=== PATIENT | male | born 1960 ===

== ENCOUNTER 2018-08-07 10:27 | Emergency (ER) | payer BC ==
[2018-08-07 10:39] VITALS: O2SAT 97
--- NOTE | 2018-08-07 11:20 | C.PDOC ---
History Of Present Illness 58 y/o male presents to ED requesting alcohol detox. Patient states he is a daily drinker, but for the past week, he has been binge drinking alcohol. Patient complains of mild headache and epigastric abdominal pain. Otherwise he denies chest pain, SOB, vomiting, diarrhea, dizziness, or visual changes. Time Seen by Provider: 08/07/18 10:51 Chief Complaint (Nursing): Substance Abuse History Per: Patient History/Exam Limitations: no limitations Onset/Duration Of Symptoms: Days Current Symptoms Are (Timing): Still Present Past Medical History Reviewed: Historical Data, Nursing Documentation, Vital Signs Vital Signs: Last Vital Signs Temp 98.5 F 08/07/18 10:36 Pulse 116 H 08/07/18 10:36 Resp 20 08/07/18 10:36 BP 170/100 H 08/07/18 10:36 Pulse Ox 97 08/07/18 10:36 - Medical History PMH: HTN Family History: States: No Known Family Hx - Social History Hx Alcohol Use: Yes Hx Substance Use: No - Immunization History Hx Tetanus Toxoid Vaccination: No Hx Influenza Vaccination: No Hx Pneumococcal Vaccination: No Review Of Systems Except As Marked, All Systems Reviewed And Found Negative. Eyes: Negative for: Vision Change Cardiovascular: Negative for: Chest Pain Respiratory: Negative for: Shortness of Breath Gastrointestinal: Positive for: Abdominal Pain (epigastric). Negative for: Vomiting, Diarrhea Neurological: Positive for: Headache (mild). Negative for: Dizziness Physical Exam - Physical Exam Appears: Non-toxic, Other (mildly uncomfortable) Skin: Warm, Dry Head: Atraumatic, Normacephalic Eye(s): bilateral: Normal Inspection Oral Mucosa: Moist Neck: Supple Chest: Symmetrical Cardiovascular: Rhythm Regular (tachycardic), No Murmur Respiratory: Normal Breath Sounds, No Rales, No Rhonchi, No Wheezing Gastrointestinal/Abdominal: Tenderness (mild epigastric tenderness), Other (Negative for Reyes's and McBurney's) Extremity: Bilateral: Atraumatic, Normal Color And Temperature, Normal ROM Neurological/Psych: Oriented x3, Normal Speech, Normal Cognition, Other (Mild tremors) Gait: Steady ED Course And Treatment - Laboratory Results Result Diagrams: 08/07/18 11:17 08/07/18 11:17 O2 Sat by Pulse Oximetry: 97 (RA) Pulse Ox Interpretation: Normal Progress Note: Bloodwork and urinalysis ordered. Patient was given librium, ibuprofen, and pepcid PO. 12:15- Crisis now states no male detox beds are available due to no discharges. Disposition Counseled Patient/Family Regarding: Diagnosis, Need For Followup, Rx Given - Disposition Referrals: [facility] [Outside] Disposition: HOME/ ROUTINE Disposition Time: 13:00 Condition: STABLE Prescriptions: Famotidine [Pepcid] 20 mg PO BID PRN #15 tab PRN Reason: abdominal Instructions: Alcohol Abuse and Alcoholism (DC) Forms: [employer] (Panamanian) Print Language: URDU - Clinical Impression Clinical Impression: Alcohol dependence - Scribe Statement The provider has reviewed the documentation as recorded by the Fatimah Begum Provider Attestation: All medical record entries made by the José Luisibshiv were at my direction and personally dictated by me. I have reviewed the chart and agree that the record accurately reflects my personal performance of the history, physical exam, medical decision making, and the department course for this patient. I have also personally directed, reviewed, and agree with the discharge instructions and disposition.
[2018-08-07 11:30] LABS: BASO % 0.4 % (0.0-2.0); EOS % 0.4 % (0.0-4.0); HEMOGLOBIN 15.4 g/dL (12.0-18.0); LYMPH % 28.2 % (20.0-40.0); MEAN CELL VOLUME 88.8 fL (80.0-94.0); MEAN CORPUSCULAR HEMOGLOBIN 29.8 pg (27.0-31.0); MEAN CORPUSCULAR HGB CONC 33.5 g/dL (33.0-37.0); MEAN PLATELET VOLUME 8.9 fL (7.2-11.7); MONO # 0.5 K/uL (0.0-0.8); MONO % 7.4 % (0.0-10.0); NEUT # 4.5 K/uL (1.8-7.0); NEUT % 63.6 % (50.0-75.0); NRBC % 0.2 % (0.0-2.0); RBC 5.18 Mil/uL (4.40-5.90); RED CELL DISTRIBUTION WIDTH 13.9 % (11.5-14.5); WHITE BLOOD COUNT 7.1 K/uL (4.8-10.8)
[2018-08-07 11:35] LABS: SQUAMOUS EPITHIAL < 1 /hpf (0-5); URINE BILIRUBIN NEGATIVE (NEGATIVE); URINE BLOOD 1+ (NEGATIVE); URINE CLARITY Hazy (Clear); URINE COLOR Yellow (YELLOW); URINE GLUCOSE (UA) NORMAL (Normal); URINE LEUKOCYTE ESTERASE NEG Leu/uL (Negative); URINE PROTEIN 2+ mg/dL (NEGATIVE); URINE UROBILINOGEN NORMAL mg/dL (0.2-1.0)
[2018-08-07 11:59] LABS: ALB/GLOB RATIO 1.2 (1.0-2.1); ALBUMIN 4.3 g/dL (3.5-5.0); ALT/SGPT 106 U/L (21-72); AST/SGOT 113 U/L (17-59); BLOOD UREA NITROGEN 16 mg/dL (9-20); CALCIUM 8.5 mg/dl (8.6-10.4); GFR NON-AFRICAN AMERICAN > 60; LIPASE 368 U/L (23-300)
[2018-08-07 12:04] LABS: BARBITURATES, UR NEGATIVE (NEGATIVE); BENZODIAZEPINES, UR NEGATIVE (NEGATIVE); OPIATES, UR NEGATIVE (NEGATIVE); PHENCYCLIDINE, UR NEGATIVE (NEGATIVE)
[2018-08-07 13:18] VITALS: BP 151/92; PULSE 113; RESP 13; TEMP 98
== END 2018-08-07 13:31 | disposition home or self-care (01) ==
LOC: C.ER 10:27
DX: F10.20 Alcohol dependence, uncomplicated (principal); I10 Essential (primary) hypertension
CPT/HCPCS: 80053; 81001; 83690; 85025; 99283; G0480

== ENCOUNTER 2018-08-08 09:57 | Inpatient (IN) | payer BC ==
[2018-08-08 11:08] LABS: SQUAMOUS EPITHIAL 1 /hpf (0-5); URINE BACTERIA RARE (<OCC); URINE BILIRUBIN NEGATIVE (NEGATIVE); URINE BLOOD 1+ (NEGATIVE); URINE CLARITY Hazy (Clear); URINE COLOR Yellow (YELLOW); URINE GLUCOSE (UA) NORMAL (Normal); URINE LEUKOCYTE ESTERASE NEG Leu/uL (Negative); URINE PROTEIN 1+ mg/dL (NEGATIVE); URINE UROBILINOGEN NORMAL mg/dL (0.2-1.0)
[2018-08-08 11:23] LABS: BARBITURATES, UR NEGATIVE (NEGATIVE); OPIATES, UR NEGATIVE (NEGATIVE); PHENCYCLIDINE, UR NEGATIVE (NEGATIVE)
[2018-08-08 11:32] LABS: ALB/GLOB RATIO 1.5 (1.0-2.1); ALBUMIN 4.7 g/dL (3.5-5.0); ALT/SGPT 131 U/L (21-72); AST/SGOT 131 U/L (17-59); BENZODIAZEPINES, UR POSITIVE (NEGATIVE); BLOOD UREA NITROGEN 17 mg/dL (9-20); CALCIUM 8.8 mg/dl (8.6-10.4); GFR NON-AFRICAN AMERICAN > 60
--- NOTE | 2018-08-08 12:08 | C.PDOC ---
History Of Present Illness 58 years old male presents to ED requesting alcohol detox. Patient reports last alcohol use was this morning. He also reports feeling anxious and is requesting anxiety medication. Denies Si, HI, or any other complaints. Time Seen by Provider: 08/08/18 10:17 Chief Complaint (Nursing): Substance Abuse History Per: Patient History/Exam Limitations: no limitations Onset/Duration Of Symptoms: Hrs Current Symptoms Are (Timing): Still Present Suicide/Self Injury Attempted (Context): None Modifying Factor(s): Alcohol Associated Symptoms: Anxiety. denies: Suicidal Thoughts, Suicidal Plan Involuntary Hold By: None Recent travel outside of the [place]: No Past Medical History Reviewed: Historical Data, Nursing Documentation, Vital Signs Vital Signs: Last Vital Signs Temp 98 F 08/08/18 10:12 Pulse 107 H 08/08/18 10:12 Resp 20 08/08/18 10:12 BP 139/89 08/08/18 10:12 Pulse Ox 97 08/08/18 10:12 - Medical History PMH: HTN (pt. reports non-compiance with med) Family History: States: No Known Family Hx - Social History Hx Alcohol Use: Yes Hx Substance Use: No - Immunization History Hx Tetanus Toxoid Vaccination: No Hx Influenza Vaccination: No Hx Pneumococcal Vaccination: No Review Of Systems Constitutional: Negative for: Fever, Chills Gastrointestinal: Negative for: Nausea, Vomiting, Diarrhea Skin: Negative for: Rash Neurological: Negative for: Weakness, Numbness Psych: Positive for: Anxiety Physical Exam - Physical Exam Appears: Non-toxic, No Acute Distress Skin: Normal Color, Warm, Dry, No Rash Head: Atraumatic, Normacephalic Eye(s): bilateral: Normal Inspection, PERRL, EOMI Oral Mucosa: Moist Neck: Normal ROM, Supple Chest: Symmetrical, No Tenderness Cardiovascular: Rhythm Regular, No Murmur Respiratory: Normal Breath Sounds, No Rales, No Rhonchi, No Wheezing Gastrointestinal/Abdominal: Bowel Sounds, Soft, No Tenderness Extremity: Normal ROM Extremity: Bilateral: Atraumatic, Normal Color And Temperature, Normal ROM Pulses: Left Radial: Normal, Right Radial: Normal Neurological/Psych: Oriented x3, Normal Speech Gait: Steady ED Course And Treatment - Laboratory Results Result Diagrams: 08/08/18 10:54 O2 Sat by Pulse Oximetry: 97 (RA) Pulse Ox Interpretation: Normal Medical Decision Making Medical Decision Making: Plan: * Blood work * Xanax * Urinalysis * Crisis notified Disposition - Disposition Disposition: HOSPITALIZED Disposition Time: 12:06 Condition: STABLE - POA Present On Arrival: None - Clinical Impression Clinical Impression: Alcohol dependence - PA / SHAGGER / Resident Statement MD/DO has reviewed & agrees with the documentation as recorded. - Scribe Statement The provider has reviewed the documentation as recorded by the Scribe Jon Mcmahan All medical record entries made by the Fatimah were at my direction and personally dictated by me. I have reviewed the chart and agree that the record accurately reflects my personal performance of the history, physical exam, medical decision making, and the department course for this patient. I have also personally directed, reviewed, and agree with the discharge instructions and disposition.
--- NOTE | 2018-08-08 13:40 | PCM.BM ---
<Diana Mills F - Last Filed: 08/08/18 13:40> Treatment Plan Problems - Problems identified on initial assessmt Potential for alcohol withdrawal Date Initiated: 08/08/18 Time Initiated: 13:40 Assessment reference: NA Status: Active Treatment assets and liabiliti Patient Assests: adapts well, cooperative, insightful Patient Liabilities: financial problems, relationship conflicts, substance abuse - Milieu Protocol Maintain good personal hygiene: every shift Encourage regular showers, every shift Remind patient to perform daily oral care, every shift Assist patient to perform ADL's Maintain personal safety: every shift Educate patient to report safety concerns to staff, every shift Monitor environment for contraband/sharps Medication safety: Monitor for expected outcome, potential side effects: every shift, Assess barriers to learning: every shift, Assess readiness for medication education: every shift <Sarah Clarke - Last Filed: 08/09/18 09:32> Family Contact Family contact name: Family contacted how many times per week?: 2 - Goals for Treatment Patient goals for treatment: Complete detox and discuss aftercare options with counseling staff. Discharge/Continuing Care - Education Needs Education Needs: Family Diagnosis/Disease Process, Family Community resources, Patient Medication, Patient Diagnosis/Disease Process, Patient Coping Skills, Patient Anger Management skills, Patient Placement options, Patient Community resources - Discharge Discharge Criteria: No longer exhibiting s/s of withdrawal, Reduction of target symptoms Discharge to:: Home, With Family - Additional Comments 08/09/18 09:33 Pt. is undecided as of this writing but will review and discuss with unit counseling staff prior to D/C. - Treatment Team Participation Patient/Family/SO Statement: 08/09/18 09:34 "I don't know yet..." Discussed with Family/SO: No Was Patient/Family/SO present at Treatment Team Meeting: Yes <Varun Silverman - Last Filed: 08/09/18 17:36> - Diagnosis (1) Alcohol use disorder, severe, dependence Status: Acute Interventions: 08/09/18 17:35 * Assess 7x/week regarding severity of withdrawal * Educate regarding risks, benefits, side effects and alternatives of medications * Use Motivational Interviewing for abstinence * Use CBT for relapse prevention * Medication management for withdrawal symptoms * Encourage medication assisted treatment
[2018-08-08] MEDS: Multiple Vitamins Tab PO SCH (14:25)
--- NOTE | 2018-08-08 22:36 | PCM.PSYCH ---
Initial Psychiatric Evaluation - Initial Psychiatric Evaluation Type of Admission: Voluntary Legal Status: Capacity Chief Complaint (in patient's own words): I need help for my alcohol use. History of Present Illness and Precipitating Events: Patient is a 58 years old, , employed, male with no previous psychiatric history and who was admitted due to withdrawing from alcohol. Alcohol: Patient started using alcohol at 18 years of age. Patient is drinking in binges usually on weekends and was drinking half pint of alcohol each time. This time he was drinking for last 1 week continuously and was drinking 1/5 of beer or vodka daily. His last use was today in the morning before coming to the hospital. The longest period of abstinence was 3 months from March to June 2018. He relapsed again in June. Patient denied use of other drugs including cocaine, cannabis and heroin. Denied smoking cigarettes. Patient was born in [facility], moved to [place] [facility] in [place] alone. 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 He is and has 5 children from 2 wives, he first . His 2 little children live with patient. His height is 5 feet 6 inches and weight is 180 pounds. Current Medications: Active Medications Generic Name Dose Route Start Last Admin Trade Name Freq PRN Reason Stop Dose Admin Clonidine HCl 0.1 mg 08/08/18 13:41 Catapres PO Q4H PRN Symptoms of alcohol withdrawl Famotidine 20 mg 08/08/18 18:00 08/08/18 17:03 Pepcid PO 20 mg BID JOYCELYN Administration Folic Acid 1 mg 08/08/18 13:45 08/08/18 14:25 Folic Acid PO 1 mg DAILY JOYCELYN Administration Gabapentin 300 mg 08/08/18 14:00 08/08/18 17:03 Neurontin PO 300 mg TID JOYCELYN Administration Hydrochlorothiazide 12.5 mg 08/08/18 14:00 08/08/18 14:26 Microzide PO 12.5 mg DAILY JOYCELYN Administration Ibuprofen 400 mg 08/08/18 13:46 Motrin Tab PO Q6 PRN Pain, moderate (4-7) Lorazepam 2 mg 08/08/18 13:45 08/08/18 19:32 Ativan PO 08/13/18 13:44 2 mg Q4 JOYCELYN Administration Taper Lorazepam 1 mg 08/08/18 13:44 08/08/18 14:26 Ativan PO 1 mg Q4H PRN Administration Symptoms of alcohol withdrawl Losartan Potassium 100 mg 08/08/18 14:00 08/08/18 14:26 Cozaar PO 100 mg DAILY JOYCELYN Administration Multivitamins 1 tab 08/08/18 13:45 08/08/18 14:25 Hexavitamin PO 1 tab DAILY JOYCELYN Administration Thiamine HCl 100 mg 08/08/18 13:45 08/08/18 14:25 Vitamin B1 Tab PO 100 mg DAILY JOYCELYN Administration Trazodone HCl 50 mg 08/08/18 13:41 08/08/18 21:28 Desyrel PO 50 mg HS PRN Administration Insomnia Past Psychiatric History - Past Psychiatric History Previous Treatment History: Inpatient History of Abuse: None reported History of ETOH/Drug Use: See HPI History of Family Illness: Reported history of alcohol use in his father and maternal uncle Pertinent Medical Hx (Current Medical&Sleep Prob, Allergies): Allergies Allergy/AdvReac Type Severity Reaction Status Date / Time No Known Allergies Allergy Verified 08/08/18 10:17 Famotidine [Pepcid] 20 mg PO BID PRN #15 tab 08/07/18 Losartan/Hydrochlorothiazide [Losartan-Hctz 100-12.5 mg Tab] 1 each PO DAILY 08/07/18 Hypertension Review of Systems - Psychiatric Psychiatric: As Per HPI, Anxiety, Other Mental Status Examination - Personal Presentation Personal Presentation: Looks stated age - Affect Affect: Other (Appropriate) - Motor Activity Motor Activity: Calm - Reliability in Providing Information Reliability in Providing Information: Fair - Speech Speech: Organized - Mood Mood: Anxious - Formal Thought Process Formal Thought Process: No Impairment - Hallucinations/Delusions Hallucinations: Other (None reported) Delusions: Other - Obsessions/Compulsions Obsessions: None Compulsions: None - Cognitive Functions Orientation: Person, Place, Situation, Time Sensorium: Alert Attention/Concentration: Attentive Abstract Thinking: Leonard Estimate of Intelligence: Average Judgement: Intact, as evidence by: Insight regarding need for hospitalization Memory: Recent intact, as evidence by: Ability to recall events of the day, Remote intact, as evidenced by: Ability to recall historical events - Risk Risk: Withdrawal, Diminished functioning - Strength & Assets Inventory Strength & Assets Inventory: Family support, Cooperative - Limitations Limitations: Other DSM 5 DX - DSM 5 DSM 5 Diagnosis: Alcohol withdrawal Alcohol use disorder severe - Recommended/Plan of Treatment Treatment Recommendations and Plan of Treatment: Patient education. Supportive therapy. CBT for relapse prevention. [place] for abstinence. We'll start Ativan taper for alcohol withdrawal symptoms, due to elevated LFTs. Other when necessary medications. Multivitamins, folic acid and thiamine. Projected ELOS: 4-5 days - Smoking Cessation Smoking Cessation Initiated: No
[2018-08-09] MEDS: Multiple Vitamins Tab PO SCH (09:34)
--- NOTE | 2018-08-09 23:28 | PCM.PYCHPN ---
Psychiatric Progress Note - Psychiatric Progress Note Patient seen today, length of contact: 15 minutes Patient Chief Complaint: I am not feeling well, I am feeling dizziness. Problems Identified/Issues Discussed: Patient seen, chart reviewed, case discussed with the staff. Issues related to illness and treatment were discussed with the patient. Reported compliant with treatment with no adverse affects. Tolerating treatment very well. Patient reported still having some withdrawal symptoms including shaking in his hands, sleeping difficulty, body aches and dizziness. Mood reported as anxious. Affect appropriate. Speech soft with good eye contact. Patient was awake, alert and oriented 3. Calm and cooperative. Aftercare discussed with the patient. Patient needs more time for stabilization. Patient denied any delusions, no auditory or visual hallucinations, no suicidal ideations or homicidal ideations at the time of evaluation. Medical Problems: Hypertension Diagnostic Results: Reviewed Medication Change: No Medical Record Reviewed: Yes Mental Status Examination - Cognitive Function Orientation: Person, Place, Situation, Time Memory: Intact Attention: WNL Concentration: WNL Association: WNL Fund of Knowledge: [facility] Decription of patient's judgement and insights: Fair - Mood Mood: Anxious - Affect Affect: Other (Appropriate) - Speech Speech: Appropriate - Formal Thought Process Formal Thought Process: No Impairment Psychotic Thoughts and Behaviors: None - Suicidal Ideation Suicidal Ideation: No - Homicidal Ideation Homicidal Ideation: No Goal/Treatment Plan - Goal/Treatment Plan Need for Continued Stay: Remain at risks for inpatient hospitalization, Discharge may exacerbated symptoms, Severe functional impairment Progress Toward Problem(s) and Goals/Treatment Plan: Patient safety. Patient education. Supportive therapy. CBT for relapse prevention. [place] for abstinence. Continue treatment as before Estimated Date of D/C: 08/12/18 - Smoking Cessation Smoking Cessation Initiated: No Reason for not providing: Patient does not smoke cigarettes.
[2018-08-10] MEDS: Multiple Vitamins Tab PO SCH (10:12)
--- NOTE | 2018-08-10 10:57 | PCM.PYCHPN ---
Psychiatric Progress Note - Psychiatric Progress Note Patient seen today, length of contact: 15 min Patient Chief Complaint: I am feeling little better. Problems Identified/Issues Discussed: Patient seen and evaluated, chart reviewed and discussed with the nurse. He reports some improvement in the withdrawal symptoms, however he still reports irritability, anxiety, headaches, sweating. He denies any feelings of hopelessness or helplessness. He denies any suicidal ideation or any homicidal ideation. He denies any auditory hallucinations or any paranoia. Patient is compliant with medications and denies any side effects. Symptoms are improving but need more time to stabilize. Support and psychoeducation given. Medication Change: Yes Medical Record Reviewed: Yes Mental Status Examination - Cognitive Function Orientation: Person, Place, Situation, Time Memory: Intact Attention: WNL Concentration: Poor Association: WNL Fund of Knowledge: Poor - Mood Mood: Anxious - Affect Affect: Constricted - Speech Speech: Soft - Formal Thought Process Formal Thought Process: No Impairment - Suicidal Ideation Suicidal Ideation: No - Homicidal Ideation Homicidal Ideation: No Goal/Treatment Plan - Goal/Treatment Plan Need for Continued Stay: Remain at risks for inpatient hospitalization Progress Toward Problem(s) and Goals/Treatment Plan: Alcohol withdrawal Alcohol use disorder severe Patient education. Supportive therapy. CBT for relapse prevention. [place] for abstinence. Ativan taper for alcohol withdrawal symptoms, due to elevated LFTs. Other when necessary medications. Multivitamins, folic acid and thiamine. - Smoking Cessation Smoking Cessation Initiated: No
[2018-08-11 08:21] LABS: BLOOD UREA NITROGEN 10 mg/dL (9-20); CALCIUM 9.5 mg/dl (8.6-10.4); GFR NON-AFRICAN AMERICAN > 60
--- NOTE | 2018-08-11 08:29 | PCM.PYCHPN ---
Psychiatric Progress Note - Psychiatric Progress Note Patient seen today, length of contact: 15 min Patient Chief Complaint: I am feeling little better. Medication Change: Yes Medical Record Reviewed: Yes Mental Status Examination - Cognitive Function Orientation: Person, Place, Situation, Time Memory: Intact Attention: WNL Concentration: Poor Association: WNL Fund of Knowledge: Poor - Mood Mood: Anxious - Affect Affect: Constricted - Speech Speech: Soft - Formal Thought Process Formal Thought Process: No Impairment - Suicidal Ideation Suicidal Ideation: No - Homicidal Ideation Homicidal Ideation: No Goal/Treatment Plan - Goal/Treatment Plan Need for Continued Stay: Remain at risks for inpatient hospitalization Progress Toward Problem(s) and Goals/Treatment Plan: Alcohol withdrawal Alcohol use disorder severe Patient education. Supportive therapy. CBT for relapse prevention. [place] for abstinence. We'll start Ativan taper for alcohol withdrawal symptoms, due to elevated LFTs. Other when necessary medications. Multivitamins, folic acid and thiamine. Estimated Date of D/C: 08/12/18
[2018-08-11] MEDS: Multiple Vitamins Tab PO SCH (09:22)
[2018-08-12] MEDS: Multiple Vitamins Tab PO SCH (09:48)
--- NOTE | 2018-08-12 17:42 | PCM.PYCHPN ---
Psychiatric Progress Note - Psychiatric Progress Note Patient seen today, length of contact: 15 min Patient Chief Complaint: I'm feeling little better. Problems Identified/Issues Discussed: Patient seen, chart reviewed, case discussed with the staff. Issues related to illness and treatment were discussed with the patient. Reported compliant with treatment with no adverse affects. Tolerating treatment very well. Patient reported still having some withdrawal symptoms including shaking in his hands, sleeping difficulty, body aches but less than before. Mood reported as anxious. Affect appropriate. Speech soft with good eye contact. Patient was awake, alert and oriented 3. Calm and cooperative. Aftercare discussed with the patient. Patient needs more time for stabilization. Patient denied any delusions, no auditory or visual hallucinations, no suicidal ideations or homicidal ideations at the time of evaluation. Medical Problems: Hypertension Diagnostic Results: Reviewed DSM 5 Symptoms Update: Some improvement with treatment Medication Change: No Medical Record Reviewed: Yes Mental Status Examination - Cognitive Function Orientation: Person, Place, Situation, Time Memory: Intact Attention: WNL Concentration: WNL Association: WN Fund of Knowledge: [facility] Decription of patient's judgement and insights: Fair - Mood Mood: Anxious (Less than before) - Affect Affect: Other (Appropriate) - Speech Speech: Soft - Formal Thought Process Formal Thought Process: No Impairment Psychotic Thoughts and Behaviors: None - Suicidal Ideation Suicidal Ideation: No - Homicidal Ideation Homicidal Ideation: No Goal/Treatment Plan - Goal/Treatment Plan Need for Continued Stay: Remain at risks for inpatient hospitalization, Discharge may exacerbated symptoms, Severe functional impairment Progress Toward Problem(s) and Goals/Treatment Plan: Patient safety. Patient education. Supportive therapy. CBT for relapse prevention. [place] for abstinence. Continue treatment as before Estimated Date of D/C: 08/14/18 - Smoking Cessation Smoking Cessation Initiated: No
[2018-08-12 19:19] VITALS: RESP 18
[2018-08-13] MEDS: Multiple Vitamins Tab PO SCH (09:24)
[2018-08-13 09:56] VITALS: O2SAT 98
[2018-08-13 13:53] VITALS: BP 138/88; PULSE 96; TEMP 98.8
--- NOTE | 2018-08-13 22:00 | PCM.PYCHDC ---
Mental Status Examination - Mental Status Examination Orientation: Person, Place, Situation, Time Memory: Intact Mood: Neutral Affect: Other (Appropriate) Speech: Appropriate Attention: WNL Concentration: WNL Association: WNL Fund of Knowledge: WNL Formal Thought Process: No Impairment Description of patient's judgement and insight: Fair Psychotic Thoughts and Behaviors: None Suicidal Ideation: No Current Homicidal Ideation?: No Discharge Summary - Discharge Note Reason for Hospitalization: Alcohol withdrawal. Alcohol use disorder severe Laboratory Data: Reviewed Consultations:: List each consultation separately and include: 1. Reason for request. 2. Findings. 3. Follow-up Summary of Hospital Course include:: 1. Description of specific treatment plan utilized for patients during their course of treatmen. 2. Summarize the time-course for resolution of acute symptoms and/or regressed behaviors. 3. Describe issues identified and worked on during hospitalization. 4. Describe medication utilized. 5. Describe medical problems identified and treated. 6. Reassessment of suicide risk Summary of Hospital Course: Patient is a 58 years old, , employed, male with no previous psychiatric history and who was admitted due to withdrawing from alcohol. Alcohol: Patient started using alcohol at 18 years of age. Patient is drinking in binges usually on weekends and was drinking half pint of alcohol each time. This time he was drinking for last 1 week continuously and was drinking 1/5 of beer or vodka daily. His last use was today in the morning before coming to the hospital. The longest period of abstinence was 3 months from March to June 2018. He relapsed again in June. Patient denied use of other drugs including cocaine, cannabis and heroin. Denied smoking cigarettes. Patient was born in [facility], moved to [facility] in [place] alone. 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 He is and has 5 children from 2 wives, he first . His 2 little children live with patient. His height is 5 feet 6 inches and weight is 180 pounds. During his stay in the hospital patient was treated with Ativan taper for alcohol withdrawal symptoms. Patient was also started on his home medications. Also started on as needed medications. Patient was attending groups and other activities on the unit. With above treatment patient started feeling better. Today patient was stable, had no withdrawal symptoms and ready for discharge from the hospital. At the time of evaluation and discharge, patient was awake, alert and oriented x3, had no delusions, no auditory or visual hallucinations, no suicidal ideations or homicidal ideations. Patient was discharged in stable condition. - Diagnosis (1) Alcohol use disorder, severe, dependence Status: Acute - Final Diagnosis (DSM 5) Condition upon Discharge: STABLE Disposition: HOME/ ROUTINE Follow-up Treatment Plan: Patient will go to [facility] for follow-up care after discharge from the hospital. Prescriptions/Medication Reconciliation: Gabapentin [Neurontin] 300 mg PO TID #90 cap QUEtiapine [SEROquel] 50 mg PO HS #30 tab traZODone [Desyrel] 100 mg PO HS PRN #30 tab PRN Reason: Insomnia - Smoking Cessation Smoking Cessation Medication prescribed: No - Antipsychotic Medications Pt discharged on 2 or more routine antipsychotic medications: No
== END 2018-08-13 13:35 | disposition home or self-care (01) | DRG 895 ==
LOC: C.ER 09:57 → C.7D 12:11
PROC: HZ2ZZZZ Detoxification Services for Substance Abuse Treatment (ICD-10-PCS; principal; 2018-08-08)
PROC: HZ52ZZZ Individual Psychotherapy for Substance Abuse Treatment, Cognitive-Behavioral (ICD-10-PCS; 2018-08-08)
PROC: HZ59ZZZ Individual Psychotherapy for Substance Abuse Treatment, Supportive (ICD-10-PCS; 2018-08-08)
PROC: HZ56ZZZ Individual Psychotherapy for Substance Abuse Treatment, Psychoeducation (ICD-10-PCS; 2018-08-08)
PROC: HZ42ZZZ Group Counseling for Substance Abuse Treatment, Cognitive-Behavioral (ICD-10-PCS; 2018-08-08)
PROC: HZ46ZZZ Group Counseling for Substance Abuse Treatment, Psychoeducation (ICD-10-PCS; 2018-08-08)
PROC: GZHZZZZ Group Psychotherapy (ICD-10-PCS; 2018-08-08)
PROC: GZ58ZZZ Individual Psychotherapy, Cognitive-Behavioral (ICD-10-PCS; 2018-08-08)
PROC: GZ56ZZZ Individual Psychotherapy, Supportive (ICD-10-PCS; 2018-08-08)
DX: F10.230 Alcohol dependence with withdrawal, uncomplicated (principal); F41.9 Anxiety disorder, unspecified; Y90.6 Blood alcohol level of 120-199 mg/100 ml; I10 Essential (primary) hypertension